=== PATIENT | male | born 1950 | race Caucasian/White ===

== ENCOUNTER → 2017-04-13 08:50 | Outpatient (CLI) | payer MEDICARE | END | disposition home or self-care (01) | LOC: D.CT 08:50 | DX: R10.9 Unspecified abdominal pain (principal) ==

== ENCOUNTER → 2017-05-09 07:24 | Outpatient (CLI) | payer MEDICARE | END | disposition home or self-care (01) | LOC: D.RAD 07:24 | DX: R93.5 Abnormal findings on diagnostic imaging of other abdominal regions, including retroperitoneum (principal) ==